=== PATIENT | male | born 1995 | race Caucasian/White ===

== ENCOUNTER 2018-04-26 04:19 | Emergency (ER) | payer BC ==
--- NOTE | 2018-04-26 05:19 | ER ---
Nurse's Notes [facility] Name: Samaria Escobar Age: 22 yrs Sex: Male : 1995 Arrival Date: 04/26/2018 Time: 04:21 Bed 16 Private MD: Diagnosis: Tonsillitis Presentation: 04/26 04:36 Presenting complaint: Patient states: I noticed my throat started hurting yesterday and jb4 I have had an abscess in the past and wanted to get it checked. Transition of care: patient was not received from another setting of care. Onset of symptoms was April 25, 2018. Risk Assessment: Do you want to hurt yourself or someone else? Patient reports no desire to harm self or others. Initial Sepsis Screen: Does the patient meet any 2 criteria? HR > 90 bpm. Yes Does the patient have a suspected source of infection? No. Patient's initial sepsis screen is negative. Care prior to arrival: None. 04:36 Method Of Arrival: Ambulatory jb4 04:36 Acuity: MG 4 jb4 Triage Assessment: 03:40 General: Appears in no apparent distress. comfortable, Behavior is calm, cooperative, cc3 appropriate for age. Pain: Complains of pain in throat pain. EENT: Reports pain in throat. Neuro: Level of Consciousness is awake, alert, obeys commands, Oriented to person, place, time, situation, Appropriate for age. Cardiovascular: Denies chest pain. Respiratory: Airway is patent Respiratory effort is even, unlabored, Respiratory pattern is regular, symmetrical. GI: Abdomen is round non-distended. : No signs and/or symptoms were reported regarding the genitourinary system. Derm: No signs and/or symptoms reported regarding the dermatologic system. Musculoskeletal: Circulation, motion, and sensation intact. Range of motion: intact in all extremities. Historical: - Allergies: 04:38 Clindamycin; jb4 - Home Meds: 04:38 None [Active]; jb4 - PMHx: 04:39 Heart Murmur; jb4 - PSHx: 04:38 abscess removal from the throat.; jb4 - Immunization history:: Adult Immunizations up to date, Flu vaccine is not up to date. - Social history:: Smoking status: Patient/guardian denies using tobacco, Patient/guardian denies using alcohol. - Ebola Screening: : No symptoms or risks identified at this time. Screenin:40 Abuse screen: Denies threats or abuse. Denies injuries from another. Nutritional cc3 screening: No deficits noted. Tuberculosis screening: No symptoms or risk factors identified. Fall Risk Ambulatory Aid- None/Bed Rest/Nurse Assist (0 pts). Gait- Normal/Bed Rest/Wheelchair (0 pts) Mental Status- Oriented to own ability (0 pts). Assessment: 03:40 EENT: Reports throat pain since yesterday. cc3 03:40 Respiratory: Airway is patent Respiratory effort is even, unlabored, Respiratory cc3 pattern is regular, symmetrical, Breath sounds are clear bilaterally. 03:40 EENT: Throat is reddened bilaterally. cc3 04:25 Reassessment: Patient appears in no apparent distress at this time. Patient and/or cc3 family updated on plan of care and expected duration. Pain level reassessed. Patient is alert, oriented x 3, equal unlabored respirations, skin warm/dry/pink. 05:25 Reassessment: Patient appears in no apparent distress at this time. Patient and/or cc3 family updated on plan of care and expected duration. Pain level reassessed. Patient is alert, oriented x 3, equal unlabored respirations, skin warm/dry/pink. Dr. Gabriel discharged home the patient with prescription given. No IV cannula in situ. Patient left ER vitally stable and ambulatory. Vital Signs: 04:38 BP 119 / 70; Pulse 98; Resp 18; Temp 98.9; Pulse Ox 100% on R/A; Weight 61.23 kg; jb4 Height 5 ft. 8 in. (172.72 cm); 05:15 BP 121 / 77; Pulse 92; Resp 17 S; Pulse Ox 100% on R/A; cc3 04:38 Body Mass Index 20.53 (61.23 kg, 172.72 cm) jb4 ED Course: 03:40 Patient has correct armband on for positive identification. Bed in low position. Call cc3 light in reach. Side rails up X 1. Pulse ox on. NIBP on. 04:21 Patient arrived in ED. al2 04:33 Марина Mendieta is Primary Nurse. cc3 04:37 Triage completed. jb4 04:38 Arm band placed on left wrist. jb4 04:43 Feliz Gabriel MD is Attending Physician. pkl 05:18 Hannah Alexis MD is Referral Physician. pkl 05:25 No provider procedures requiring assistance completed. Patient did not have IV access cc3 during this emergency room visit. Administered Medications: No medications were administered Outcome: 05:19 Discharge ordered by . pkl 05:25 Discharged to home ambulatory. cc3 05:25 Condition: stable 05:25 Discharge instructions given to patient, Instructed on discharge instructions, follow up and referral plans. medication usage, Demonstrated understanding of instructions, follow-up care, medications, Prescriptions given X 1. 05:29 Patient left the ED. cc3 Signatures: Feliz Gabriel MD MD pkl Charly Wynne, RN RN jb4 Payton Littlejohn Charlene cc3 Corrections: (The following items were deleted from the chart) 04:39 04:38 PMHx: None; alec jbInocencio
--- NOTE | 2018-04-26 05:19 | EDPHYS ---
Physician Documentation [facility] Name: Samaria Escobar Age: 22 yrs Sex: Male : 1995 Arrival Date: 04/26/2018 Time: 04:21 Bed 16 Private MD: ED Physician Feliz Gabriel HPI: 04/26 04:49 This 22 yrs old Male presents to ER via Ambulatory with complaints of Fever, Sore pkl Throat. 04:49 The patient presents with sore throat. Onset: The symptoms/episode began/occurred pkl yesterday. Associated signs and symptoms: The patient has no apparent associated signs or symptoms. Historical: - Allergies: 04:38 Clindamycin; jb4 - Home Meds: 04:38 None [Active]; jb4 - PMHx: 04:39 Heart Murmur; jb4 - PSHx: 04:38 abscess removal from the throat.; jb4 - Immunization history:: Adult Immunizations up to date, Flu vaccine is not up to date. - Social history:: Smoking status: Patient/guardian denies using tobacco, Patient/guardian denies using alcohol. - Ebola Screening: : No symptoms or risks identified at this time. ROS: 04:49 Eyes: Negative for injury, pain, redness, and discharge. pkl 04:49 ENT: Positive for sore throat. 04:49 Neck: Negative for stiffness. 04:49 Cardiovascular: Negative for chest pain. 04:49 Respiratory: Negative for cough, shortness of breath. 04:49 Abdomen/GI: Negative for abdominal pain, nausea, vomiting, and diarrhea. 04:49 Back: Negative for acute changes. 04:49 : Negative for urinary symptoms. Exam: 04:49 Head/Face: Normocephalic, atraumatic. Eyes: Pupils equal round and reactive to light, pkl extra-ocular motions intact. Lids and lashes normal. Conjunctiva and sclera are non-icteric and not injected. Cornea within normal limits. Periorbital areas with no swelling, redness, or edema. 04:49 ENT: Posterior pharynx: Tonsils: enlarged on the right, with erythema. 04:49 Neck: Exam negative for acute changes. 04:49 Chest/axilla: Exam negative for acute changes. 04:49 Cardiovascular: Rate: normal, Rhythm: regular. 04:49 Respiratory: the patient does not display signs of respiratory distress, Respirations: normal. 04:49 Abdomen/GI: Exam negative for acute changes. 04:49 Back: Exam negative for acute changes. 04:49 : Exam negative for acute changes. 04:49 Musculoskeletal/extremity: Exam is negative for acute changes. 04:49 Skin: Exam negative for rash. 04:49 Neuro: Orientation: is normal, Mentation: is normal, Cranial nerves: grossly normal, Motor: is normal. Vital Signs: 04:38 BP 119 / 70; Pulse 98; Resp 18; Temp 98.9; Pulse Ox 100% on R/A; Weight 61.23 kg; jb4 Height 5 ft. 8 in. (172.72 cm); 05:15 BP 121 / 77; Pulse 92; Resp 17 S; Pulse Ox 100% on R/A; cc3 04:38 Body Mass Index 20.53 (61.23 kg, 172.72 cm) jb4 MDM: 04:43 Patient medically screened. pk 05:18 Data reviewed: vital signs, nurses notes, lab test result(s). pk 04/26 04:25 Order name: Flu; Complete Time: 05:20 ak1 04/26 04:25 Order name: Strep; Complete Time: 05:20 ak 04/26 05:17 Order name: Throat Culture EDMS Administered Medications: No medications were administered Disposition: 04/26/18 05:19 Discharged to Home. Impression: Tonsillitis. - Condition is Stable. - Prescriptions for Augmentin 875- 125 mg Oral Tablet - take 1 tablet by ORAL route every 12 hours for 7 days; 14 tablet. - Work release form, Medication Reconciliation Form, Thank You Letter, Antibiotic Education, Prescription Opioid Use form. - Follow up: Hannah Alexis MD; When: 2 - 3 days; Reason: Re-evaluation by your physician. - Problem is new. - Symptoms are unchanged. Signatures: Dispatcher [employer] EDMS Feliz Gabriel MD MD pkl Bryson, James RN RN jb4 Марина Mendieta cc3 Corrections: (The following items were deleted from the chart) 04:39 04:38 PMHx: None; jb4 jb4 05:29 05:19 04/26/2018 05:19 Discharged to Home. Impression: Tonsillitis. Condition is cc3 Stable. Forms are Medication Reconciliation Form, Thank You Letter, Antibiotic Education, Prescription Opioid Use. Follow up: Hannah Alexis; When: 2 - 3 days; Reason: Re-evaluation by your physician. Problem is new. Symptoms are unchanged. pkl
== END 2018-04-26 05:29 | disposition home or self-care (01) ==
LOC: ER 04:19
DX: J03.90 Acute tonsillitis, unspecified (principal); Z88.3 Allergy status to other anti-infective agents
CPT/HCPCS: 87070; 87081; 87804; 99283

== ENCOUNTER 2018-12-29 18:45 | Emergency (ER) | payer BC ==
[2018-12-29] MEDS ORDERED: ONDANSETRON 4 MG (ODT) TAB ONE (19:38)
[2018-12-29] MEDS ORDERED: IBUPROFEN 400 MG TAB ONE (19:45)
[2018-12-29] MEDS ORDERED: AMOX/K CLAV 875 MG TAB ONE (20:49)
[2018-12-29] MEDS ORDERED: dexAMETHasone 4 MG TAB ONE (20:49)
--- NOTE | 2018-12-29 20:49 | EDPHYS ---
Physician Documentation [facility] Name: Samaria Escobar Age: 23 yrs Sex: Male : 1995 Arrival Date: 12/29/2018 Time: 18:46 Bed 15 Private MD: ED Physician Wilmar Edward HPI: 12/29 19:20 This 23 yrs old Male presents to ER via Ambulatory with complaints of Sore cp Throat. 19:20 The patient presents with sore throat. Onset: The symptoms/episode began/occurred this cp morning. Severity of symptoms: in the emergency department the symptoms are unchanged, despite home interventions. Associated signs and symptoms: Pertinent positives: dysphagia, Pertinent negatives cough, fever, headache. Historical: - Allergies: 19:02 Clindamycin; ak1 - Home Meds: 19:02 None [Active]; ak1 - PMHx: 19:02 Heart Murmur; ak1 - PSHx: 19:02 abscess removal from the throat.; ak1 - Immunization history:: Adult Immunizations unknown. - Social history:: Smoking status: Patient/guardian denies using tobacco. - Ebola Screening: : No symptoms or risks identified at this time. ROS: 19:30 Constitutional: Negative for body aches, chills, fever, poor PO intake. cp 19:30 Eyes: Negative for injury, pain, redness, and discharge. cp 19:30 ENT: Positive for sore throat, Negative for drainage from ear(s), ear pain, sinus congestion, sinus pain, difficulty swallowing, difficulty handling secretions. 19:30 Cardiovascular: Negative for chest pain. 19:30 Respiratory: Negative for cough, shortness of breath, wheezing. 19:30 Abdomen/GI: Positive for nausea, Negative for vomiting, diarrhea, constipation. 19:30 Neuro: Negative for altered mental status, headache, weakness. 19:30 All other systems are negative. Exam: 19:35 Constitutional: The patient appears in no acute distress, alert, awake, non-toxic, well cp developed, well nourished. 19:35 Head/Face: Normocephalic, atraumatic. cp 19:35 Eyes: Periorbital structures: appear normal, Conjunctiva: normal, no exudate, no injection, Sclera: no appreciated abnormality, Lids and lashes: appear normal, bilaterally. 19:35 ENT: External ear(s): are unremarkable, Ear canal(s): are normal, clear, TM's: dullness, bilaterally, Nose: is normal, Mouth: Lips: moist, Oral mucosa: moist, Posterior pharynx: Airway: no evidence of obstruction, patent, Tonsils: enlarged on the left, with erythema, Uvula: midline, non-edematous, erythema, that is moderate, exudate, is not appreciated, Voice: is normal. 19:35 Neck: ROM/movement: is normal, is supple, no range of motions limitations, no meningismus, no nuchal rigidity, Lymph nodes: lymphadenopathy is appreciated, anterior cervical nodes. 19:35 Chest/axilla: Inspection: normal, Palpation: is normal, no crepitus, no tenderness. 19:35 Cardiovascular: Rate: tachycardic, Rhythm: regular. 19:35 Respiratory: the patient does not display signs of respiratory distress, Respirations: normal, no use of accessory muscles, no retractions, no splinting, no tachypnea, labored breathing, is not present, Breath sounds: are clear throughout, no decreased breath sounds, no stridor, no wheezing. 19:35 Abdomen/GI: Exam negative for discomfort, distension, guarding, Inspection: abdomen appears normal. Vital Signs: 19:00 BP 111 / 63; Pulse 112; Resp 18; Temp 100.1; Pulse Ox 97% on R/A; Weight 63.5 kg (R); ak1 Height 5 ft. 8 in. (172.72 cm) (R); Pain 0/10; 20:18 BP 133 / 78; Pulse 111; Resp 16; Temp 100.2(O); Pulse Ox 98% on R/A; Pain 0/10; lp1 20:54 Temp 99.4(O); lp1 19:00 Body Mass Index 21.29 (63.50 kg, 172.72 cm) ak1 20:18 Patient educated on removing sweatshirt for temperature lp1 MDM: 19:04 Patient medically screened. cp 20:00 Differential diagnosis: epiglottitis, group A strep tonsillitis, peritonsillar abscess cp pharyngitis, retropharyngeal abcess. 20:48 Data reviewed: vital signs, nurses notes, lab test result(s), and as a result, I will cp discharge patient. 20:48 Counseling: I had a detailed discussion with the patient and/or guardian regarding: the cp historical points, exam findings, and any diagnostic results supporting the discharge/admit diagnosis, lab results, to return to the emergency department if symptoms worsen or persist or if there are any questions or concerns that arise at home. Response to treatment: the patient's symptoms have mildly improved after treatment, and as a result, I will discharge patient. 12/29 19:13 Order name: Strep cp 12/29 20:04 Order name: Throat Culture EDMS Administered Medications: 19:26 Drug: Zofran 4 mg Route: PO; lp1 20:32 Follow up: Response: Marked relief of symptoms lp1 19:27 Drug: Motrin 800 mg Route: PO; lp1 20:32 Follow up: Response: No adverse reaction; Temperature is unchanged lp1 20:41 Drug: Decadron 10 mg Route: PO; lp1 21:06 Follow up: Response: No adverse reaction lp1 20:41 Drug: Augmentin 875 mg Route: PO; lp1 21:06 Follow up: Response: No adverse reaction lp1 Disposition: 12/29/18 20:49 Discharged to Home. Impression: Acute tonsillitis. - Condition is Stable. - Discharge Instructions: Tonsillitis. - Prescriptions for Augmentin 875- 125 mg Oral Tablet - take 1 tablet by ORAL route every 12 hours for 10 days; 20 tablet. Ibuprofen 800 mg Oral Tablet - take 1 tablet by ORAL route every 8 hours As needed take with food; 30 tablet. Zofran 4 mg Oral Tablet - take 1 tablet by ORAL route every 12 hours As needed; 20 tablet. - Work release form, Medication Reconciliation Form, Thank You Letter, Antibiotic Education, Prescription Opioid Use form. - Follow up: Hannah Alexis MD; When: 1 - 2 days; Reason: Recheck today's complaints. - Problem is new. - Symptoms have improved. Addendum: 01/02/2019 19:28 Co-signature as Attending Physician, Wilmar Edward MD. g s Signatures: [facility] Dianna Tellez RN RN lp1 Joslyn Bonilla RN RN ak1 Jimmy Gan PA PA Wilmar Edward MD MD Corrections: (The following items were deleted from the chart) 12/29 21:07 20:49 12/29/2018 20:49 Discharged to Home. Impression: Acute tonsillitis. Condition is lp1 Stable. Forms are Medication Reconciliation Form, Thank You Letter, Antibiotic Education, Prescription Opioid Use. Follow up: Hannah Alexis; When: 1 - 2 days; Reason: Recheck today's complaints. Problem is new. Symptoms have improved. cp
--- NOTE | 2018-12-29 20:49 | ER ---
Nurse's Notes [facility] Name: Samaria Escobar Age: 23 yrs Sex: Male : 1995 Arrival Date: 12/29/2018 Time: 18:46 Bed 15 Private MD: Diagnosis: Acute tonsillitis Presentation: 12/29 19:01 Presenting complaint: Patient states: left side abscess in throat since this morning. ak1 pt stated he had same s/s last month and has had sx 2 years ago. Transition of care: patient was not received from another setting of care. Onset of symptoms was December 29, 2018. Risk Assessment: Do you want to hurt yourself or someone else? Patient reports no desire to harm self or others. Initial Sepsis Screen: Does the patient meet any 2 criteria? No. Patient's initial sepsis screen is negative. Does the patient have a suspected source of infection? No. Patient's initial sepsis screen is negative. Care prior to arrival: None. 19:01 Method Of Arrival: Ambulatory ak1 19:01 Acuity: MG 3 ak1 Historical: - Allergies: 19:02 Clindamycin; ak1 - Home Meds: 19:02 None [Active]; ak1 - PMHx: 19:02 Heart Murmur; ak1 - PSHx: 19:02 abscess removal from the throat.; ak1 - Immunization history:: Adult Immunizations unknown. - Social history:: Smoking status: Patient/guardian denies using tobacco. - Ebola Screening: : No symptoms or risks identified at this time. Screenin:28 Abuse screen: Denies threats or abuse. Denies injuries from another. Nutritional lp1 screening: No deficits noted. Tuberculosis screening: No symptoms or risk factors identified. Fall Risk None identified. Assessment: 19:15 General: Appears in no apparent distress. Behavior is appropriate for age. Pain: lp1 Complains of pain in throat. Neuro: Level of Consciousness is awake, alert, obeys commands. Cardiovascular: Patient's skin is warm and dry. Respiratory: Airway is patent Respiratory effort is even, unlabored. GI: No signs and/or symptoms were reported involving the gastrointestinal system. : No signs and/or symptoms were reported regarding the genitourinary system. EENT: Throat is reddened with gag reflex present. Derm: Skin is pink, warm \T\ dry. Musculoskeletal: No deficits noted. 19:26 Reassessment: Patient vomiting after strep swab; Verbal order for Zofran 4mg PO. lp1 20:19 Reassessment: Temp unchanged, patient educated on removing sweatshirt for temperature, lp1 demonstrates understanding Patient denies pain at this time. Vital Signs: 19:00 BP 111 / 63; Pulse 112; Resp 18; Temp 100.1; Pulse Ox 97% on R/A; Weight 63.5 kg (R); ak1 Height 5 ft. 8 in. (172.72 cm) (R); Pain 0/10; 20:18 BP 133 / 78; Pulse 111; Resp 16; Temp 100.2(O); Pulse Ox 98% on R/A; Pain 0/10; lp1 20:54 Temp 99.4(O); lp1 19:00 Body Mass Index 21.29 (63.50 kg, 172.72 cm) ak1 20:18 Patient educated on removing sweatshirt for temperature lp1 ED Course: 18:46 Patient arrived in ED. as 19:00 Arm band placed on Patient placed in an exam room, on a stretcher, Patient notified of ak1 wait time. 19:02 Triage completed. ak1 19:04 Jimmy Gan PA is PHCP. cp 19:04 Jimmy Taylor MD is Attending Physician. cp 19:15 Dianna Tellez, ETELVINA is Primary Nurse. lp1 19:24 Wilmar Edward MD is Attending Physician. cp 19:28 Patient has correct armband on for positive identification. lp1 19:28 Strep swab sent to lab. lp1 20:19 No provider procedures requiring assistance completed. lp1 20:48 Hannah Alexis MD is Referral Physician. cp 21:03 Patient did not have IV access during this emergency room visit. lp1 Administered Medications: 19:26 Drug: Zofran 4 mg Route: PO; lp1 20:32 Follow up: Response: Marked relief of symptoms lp1 19:27 Drug: Motrin 800 mg Route: PO; lp1 20:32 Follow up: Response: No adverse reaction; Temperature is unchanged lp1 20:41 Drug: Decadron 10 mg Route: PO; lp1 21:06 Follow up: Response: No adverse reaction lp1 20:41 Drug: Augmentin 875 mg Route: PO; lp1 21:06 Follow up: Response: No adverse reaction lp1 Outcome: 20:49 Discharge ordered by . cp 21:03 Discharged to home ambulatory. lp1 21:03 Condition: good 21:03 Discharge instructions given to patient, Instructed on discharge instructions, follow up and referral plans. medication usage, Demonstrated understanding of instructions, follow-up care, medications, Prescriptions given X 3. 21:07 Patient left the ED. lp1 Signatures: Talia Lucas Laura, RN RN lp1 Joslyn Bonilla RN RN ak1 Jimmy Gan, PA PA cp
== END 2018-12-29 21:07 | disposition home or self-care (01) ==
LOC: ER 18:45
DX: J02.9 Acute pharyngitis, unspecified (principal); Z88.3 Allergy status to other anti-infective agents
CPT/HCPCS: 87070; 87081; 99283